=== PATIENT | male | born 1985 | race Caucasian/White ===

== ENCOUNTER 2024-09-28 18:18 | Emergency (ER) | payer OTHER ==
[~2024-09-28] VITALS: Ht 162.6 cm; Wt 61.7 kg
[2024-09-28 21:01] VITALS: BP 110/73; TEMP 98.3; O2SAT 100
== END 2024-09-28 21:03 | disposition left against medical advice (07) ==
LOC: ER 19:00
DX: K52.9 Noninfective gastroenteritis and colitis, unspecified (principal); Z53.21 Procedure and treatment not carried out due to patient leaving prior to being seen by health care provider